=== PATIENT | female | born 1940 | race Caucasian/White ===

== ENCOUNTER 2020-12-25 07:34 | Emergency (ER) | payer MEDICARE, OTHER ==
[~2020-12-25 07:34] MED LIST: ASPIRIN EC81 MG PO; BENTYL10 MG PO; CALCIUM CITRAT1 EA14 PO; CERTAGEN1 EACH PO; COZAAR50 MG PO; FOSAMAX70 MG PO; GABAPENTIN300 MG PO; HYZAAR 50-12.51 EACH PO; ISMO20 MG PO; METAMUCIL1 DOSE PO; NEURONTIN300 MG PO; PRAVACHOL20 MG PO; PROTONIX20 MG PO; VITAMIN C1000 M2 PO; VITAMIN E400 UNI5 PO; ZOFRAN4 MG PO
[2021-02-20] MEDS ORDERED: COZAAR100 MG PO (15:25)
[2021-02-20] MEDS ORDERED: LEXAPRO 10MG TA10 MG PO (15:25)
[2021-02-20] MEDS ORDERED: PROTONIX 40MG T40 MG PO (15:25)
[2021-02-20] MEDS ORDERED: KEFLEX250 MG PO (15:27)
[2021-02-20] MEDS ORDERED: NEURONTIN300 MG PO (15:27)
[2021-02-20] MEDS ORDERED: ASPIRIN EC81 MG PO (15:28)
[2021-02-20] MEDS ORDERED: MULTIVITAMIN PO (15:28)
[2021-02-20] MEDS ORDERED: VITAMIN E400 UNI4 PO (15:29)
[2021-02-20] MEDS ORDERED: ASCORBIC ACID500 MG PO (15:30)
[2021-02-20] MEDS ORDERED: ISOSORBIDE MONO20 MG PO (15:30)
[2021-02-20] MEDS ORDERED: CALCIUM+D3 PO (15:31)
[2021-02-20] MEDS ORDERED: LIPITOR40 MG PO (15:31)
[2021-02-20] MEDS ORDERED: BACLOFEN10 MG PO (15:32)
[2021-02-20] MEDS ORDERED: TOPROL XL 25MG25 MG PO (15:33)
[2021-02-20] MEDS ORDERED: NAPROXEN500 MG PO (15:34)
[2021-04-14] MEDS ORDERED: TOPROL XL 25MG25 MG PO (14:39)
== END 2020-12-25 09:25 | disposition home or self-care (01) ==
LOC: FER 07:34
DX: S01.01XA Laceration without foreign body of scalp, initial encounter (principal); Z88.2 Allergy status to sulfonamides; Z23 Encounter for immunization; Z86.79 Personal history of other diseases of the circulatory system; W06.XXXA Fall from bed, initial encounter; Y92.009 Unspecified place in unspecified non-institutional (private) residence as the place of occurrence of the external cause
CPT/HCPCS: 70450; 90471; 90715

== ENCOUNTER 2021-01-31 11:05 | Emergency (ER) | payer MEDICARE, OTHER ==
[2021-01-31 12:42] LABS: BASOPHIL 1.2 % (0-2); EOSINOPHIL 2.4 % (0-7); HCT 43.1 % (37.0-47.0); HGB 14.2 g/dl (12.5-16.0); LYMPHOCYTE 35.7 % (15-48); MCHC 32.9 g/dL (32.0-36.0); MCV 100.2 fL (78.0-100.0); MONOCYTE 11.3 % (0-12); MPV 10.6 fL (6.0-9.5); NEUTROPHIL 49.2 % (41-80); NRBC 0; PLT 204 K/uL (150-400); RDW 14.9 % (11.5-14.0); WBC 5.8 K/uL (4.0-10.5)
[2021-01-31 12:55] LABS: INR 1.02 (0.9-1.2); PROTHROMBIN TIME 12.7 SECONDS (11.4-13.6); PTT 28.3 SECONDS (22.2-34.7)
[2021-01-31 13:09] LABS: ALBUMIN 4.1 g/dL (3.4-5.0); BILIRUBIN - TOTAL 0.6 mg/dL (0.2-1.0); BUN/CREAT RATIO (CALC) 31.4 RATIO; CREATININE 0.86 mg/dL (0.51-0.95); GLOBULIN (CALCULATION) 3.2 g/dL; POTASSIUM 4.2 mmol/L (3.5-5.1); TOTAL PROTEIN 7.3 g/dL (6.4-8.2)
[2021-01-31] MEDS ORDERED: MEDROL 4MG DOSEP4 MG PO (15:27)
[2021-02-20] MEDS ORDERED: LEXAPRO 10MG TA10 MG PO (15:25)
[2021-02-20] MEDS ORDERED: COZAAR100 MG PO (15:25)
[2021-02-20] MEDS ORDERED: PROTONIX 40MG T40 MG PO (15:25)
[2021-02-20] MEDS ORDERED: KEFLEX250 MG PO (15:27)
[2021-02-20] MEDS ORDERED: NEURONTIN300 MG PO (15:27)
[2021-02-20] MEDS ORDERED: ASPIRIN EC81 MG PO (15:28)
[2021-02-20] MEDS ORDERED: MULTIVITAMIN PO (15:28)
[2021-02-20] MEDS ORDERED: VITAMIN E400 UNI4 PO (15:29)
[2021-02-20] MEDS ORDERED: ISOSORBIDE MONO20 MG PO (15:30)
[2021-02-20] MEDS ORDERED: ASCORBIC ACID500 MG PO (15:30)
[2021-02-20] MEDS ORDERED: CALCIUM+D3 PO (15:31)
[2021-02-20] MEDS ORDERED: LIPITOR40 MG PO (15:31)
[2021-02-20] MEDS ORDERED: BACLOFEN10 MG PO (15:32)
[2021-02-20] MEDS ORDERED: TOPROL XL 25MG25 MG PO (15:33)
[2021-02-20] MEDS ORDERED: NAPROXEN500 MG PO (15:34)
== END 2021-01-31 15:32 | disposition home or self-care (01) ==
LOC: FER 11:05
PROVIDERS: Emergency Medicine
DX: H49.22 Sixth [abducent] nerve palsy, left eye (principal); Z20.822 Contact with and (suspected) exposure to COVID-19; Z88.0 Allergy status to penicillin; Z88.1 Allergy status to other antibiotic agents; Z88.2 Allergy status to sulfonamides
CPT/HCPCS: 36415; 70450; 70551; 80053; 83735; 84443; 84484; 85025; 85610; 85730; U0002

== ENCOUNTER 2021-04-11 12:42 | Emergency (ER) | payer MEDICARE, OTHER ==
[~2021-04-11 12:42] MED LIST changes: +ASCORBIC ACID500 MG PO; +BACLOFEN10 MG PO; +CALCIUM+D3 PO; +COZAAR100 MG PO; +ISOSORBIDE MONO20 MG PO; +KEFLEX250 MG PO; +LEXAPRO 10MG TA10 MG PO; +LIPITOR40 MG PO; +MEDROL 4MG DOSEP4 MG PO; +MULTIVITAMIN PO; +NAPROXEN500 MG PO; +PROTONIX 40MG T40 MG PO; +TOPROL XL 25MG25 MG PO; +VITAMIN E400 UNI4 PO
[2021-04-14] MEDS ORDERED: TOPROL XL 25MG25 MG PO (14:39)
== END 2021-04-11 17:31 | disposition home or self-care (01) ==
LOC: FER 12:42
DX: S52.611A Displaced fracture of right ulna styloid process, initial encounter for closed fracture (principal); S52.501A Unspecified fracture of the lower end of right radius, initial encounter for closed fracture; Z87.891 Personal history of nicotine dependence; Z88.0 Allergy status to penicillin; Z88.2 Allergy status to sulfonamides; W01.0XXA Fall on same level from slipping, tripping and stumbling without subsequent striking against object, initial encounter; Y92.009 Unspecified place in unspecified non-institutional (private) residence as the place of occurrence of the external cause; Y93.89 Activity, other specified
CPT/HCPCS: 73110

== ENCOUNTER → 2021-04-19 | Day surgery (SDC) | payer MEDICARE, OTHER ==
[~2021-04-19] VITALS: Ht 170.2 cm; Wt 63.7 kg
[2021-04-19 10:34] LABS: HCT 42.8 % (37.0-47.0); MCH 32.6 pg (25.0-31.0); MCHC 32.7 g/dL (32.0-36.0); MCV 99.5 fL (78.0-100.0); MPV 10.1 fL (6.0-9.5); RBC 4.3 M/uL (4.20-5.40); RDW 13.5 % (11.5-14.0); WBC 4.8 K/uL (4.0-10.5)
[2021-04-19 10:57] LABS: ALBUMIN 3.6 g/dL (3.4-5.0); BILIRUBIN - TOTAL 0.5 mg/dL (0.2-1.0); BUN/CREAT RATIO (CALC) 23.7 RATIO; CREATININE 0.76 mg/dL (0.51-0.95); GLOBULIN (CALCULATION) 3.6 g/dL; POTASSIUM 3.8 mmol/L (3.5-5.1); TOTAL PROTEIN 7.2 g/dL (6.4-8.2)
== END | disposition home or self-care (01) ==
LOC: FAS 10:02
PROVIDERS: Orthopaedic Surgery
DX: S52.571A Other intraarticular fracture of lower end of right radius, initial encounter for closed fracture (principal); I10 Essential (primary) hypertension; E78.00 Pure hypercholesterolemia, unspecified; Z88.2 Allergy status to sulfonamides; Z88.0 Allergy status to penicillin; Z79.82 Long term (current) use of aspirin; W19.XXXA Unspecified fall, initial encounter
CPT/HCPCS: 36415; 73100; 76000; 80053; C1713; C1769; J0690; J1100; J2250; J2795; J3010; J7120

== ENCOUNTER 2022-01-23 13:48 | Emergency (ER) | payer MEDICARE, OTHER ==
[2022-01-23 14:48] LABS: BASOPHIL 0.3 % (0-2); EOSINOPHIL 1.4 % (0-7); HGB 14.1 g/dl (12.5-16.0); LYMPHOCYTE 14.3 % (15-48); MONOCYTE 8.5 % (0-12); MPV 9.5 fL (6.0-9.5); NEUTROPHIL 75.3 % (41-80); NRBC 0; PLT 190 K/uL (150-400); RDW 15.2 % (11.5-14.0); WBC 8.6 K/uL (4.0-10.5)
[2022-01-23 15:18] LABS: BUN/CREAT RATIO (CALC) 25.6 RATIO; CREATININE 0.82 mg/dL (0.51-0.95)
[2022-01-23] MEDS ORDERED: NAPROSYN375 MG PO (18:01)
== END 2022-01-23 18:28 | disposition home or self-care (01) ==
LOC: FER 13:48
PROVIDERS: Emergency Medicine
DX: R07.89 Other chest pain (principal); I10 Essential (primary) hypertension; E78.5 Hyperlipidemia, unspecified; Z88.2 Allergy status to sulfonamides; Z79.82 Long term (current) use of aspirin; Z79.899 Other long term (current) drug therapy
CPT/HCPCS: 36415; 36600; 71046; 71275; 80048; 82803; 84484; 85025; 85379; 93005; Q9967

== ENCOUNTER 2022-03-29 06:21 | Emergency (ER) | payer MEDICARE, OTHER ==
[~2022-03-29 06:21] MED LIST changes: +NAPROSYN375 MG PO
[2022-03-29 06:58] LABS: BASOPHIL 0.9 % (0-2); HCT 42.1 % (37.0-47.0); HGB 13.9 g/dl (12.5-16.0); LYMPHOCYTE 16.1 % (15-48); MCH 32.9 pg (25.0-31.0); MCV 99.8 fL (78.0-100.0); MPV 9.8 fL (6.0-9.5); NEUTROPHIL 68.9 % (41-80); NRBC 0; PLT 207 K/uL (150-400); RBC 4.22 M/uL (4.20-5.40); RDW 14.2 % (11.5-14.0); WBC 6.8 K/uL (4.0-10.5)
[2022-03-29 07:23] LABS: CORONAVIRUS 2019 SARS-COV-2 NEGATIVE (NEGATIVE); INFLUENZA A NAA NEGATIVE (NEGATIVE)
[2022-03-29 07:27] LABS: INR 0.93 (0.9-1.2); PROTHROMBIN TIME 12.2 SECONDS (11.9-13.9)
[2022-03-29 07:28] LABS: PTT 27.6 SECONDS (24.9-34.6)
[2022-03-29 07:37] LABS: ALBUMIN 3.4 g/dL (3.4-5.0); BILIRUBIN - TOTAL 0.4 mg/dL (0.2-1.0); BUN/CREAT RATIO (CALC) 20.8 RATIO; CREATININE 0.72 mg/dL (0.51-0.95); GLOBULIN (CALCULATION) 3.5 g/dL; POTASSIUM 3.4 mmol/L (3.5-5.1); TOTAL PROTEIN 6.9 g/dL (6.4-8.2)
[2022-03-29] MEDS ORDERED: MEDROL 4MG DOSEP4 MG PO (12:19)
[2022-03-29] MEDS ORDERED: DOXYCYCLINE HY100 MG PO (12:19)
[2022-03-29] MEDS ORDERED: MIRALAX 238GM238 GM PO (12:20)
== END 2022-03-29 13:03 | disposition home or self-care (01) ==
LOC: FER 06:21
PROVIDERS: Internal Medicine
DX: J90 Pleural effusion, not elsewhere classified (principal); K55.1 Chronic vascular disorders of intestine; Z88.2 Allergy status to sulfonamides; Z88.0 Allergy status to penicillin; Z20.822 Contact with and (suspected) exposure to COVID-19
CPT/HCPCS: 36415; 71275; 80053; 83605; 83880; 84145; 84484; 85025; 85610; 85730; 93005; J1170; J7120; Q9967; U0002